=== PATIENT | male | born 1995 | race Caucasian/White ===

== ENCOUNTER 2022-11-21 15:07 | Emergency (ER) | payer MEDICAID, SELFPAY ==
[2022-11-21 15:18] VITALS: BP 118/72; PULSE 82; RESP 16; TEMP 37.3; O2SAT 98; BMI 24.2
--- NOTE | 2022-11-21 15:50 | ED_ITS ---
HPI - General Adult General Date Seen: 11/21/22 Chief complaint: Extremity Pain/Injury, Upper Stated complaint: Tore R bicep Time Seen by Provider: 11/21/22 15:22 Source: patient Mode of arrival: ambulatory Limitations: no limitations History of Present Illness HPI narrative: Patient is a 27-year-old male who is currently staying at [facility]. He says he was doing a lot of raking earlier today and any went to the gym. He was using dumbbells and doing biceps curls when he felt a pop in his right antecubital fossa. Then he has had some aching in his biceps and antecubital fossa since then. He has not developed any bruising or deformity. His strength is not significantly affected. He was concerned about possible tendon rupture. Related Data Allergies Allergy/AdvReac Type Severity Reaction Status Date / Time No Known Drug Allergies Allergy Verified 11/21/22 15:21 Exam Narrative: Exam Narrative: Vital signs reviewed In general, alert, well-appearing male. Extremities: Examination of the right arm shows it to be normal in appearance. Specifically the shoulder, biceps and antecubital fossa as well as forearm are normal without bruising, alteration in muscle bulk or shape. He has full range of motion at the shoulder, elbow, and wrist. He has intact strength of flexion, extension, supination and pronation. He does have a little bit of pain in the antecubital fossa with flexion and supination. He does not have significant tenderness to palpation of the biceps muscle and there is no palpable defect. Skin: Warm dry well perfused. No bruising or erythema. Const: Vital Signs, click to edit/add: Vital Signs - 24 hr 11/21/22 15:18 Temperature 99.1 F Pulse Rate [Right Pulse Oximeter] 82 Respiratory Rate 16 Blood Pressure [Le ft Upper Arm] 118/72 Pulse Oximetry 98 Oxygen Delivery Me thod Room Air Documenting provider has reviewed patient's vital signs: yes Course Course ED Course: Discussed with him that overall his exam is not suggestive of a full tendon rupture. He certainly might have a sprain or strain. I suggest that we put him in a sling, have him use ice and ibuprofen. If symptoms are not improving with conservative measures then he can follow up with Orthopedics, but I think he likely will improve without needing follow-up. For worsening, if he develops significant bruising or swelling, orthopedic referral is recommended. Vital Signs Vital signs: Initial Vital Signs Temperature 99.1 F 11/21/22 15:18 Temperature Source Temporal Artery Scan 11/21/22 15:18 Pulse Rate 82 11/21/22 15:18 Pulse Rhythm Regular 11/21/22 15:18 Pulse Strength 3+ Normal 11/21/22 15:18 Respiratory Rate 16 11/21/22 15:18 Blood Pressure 118/72 11/21/22 15:18 Blood Pressure Mean 87 11/21/22 15:18 Blood Pressure Position Sitting 11/21/22 15:18 Pulse Oximetry 98 11/21/22 15:18 Oxygen Delivery Method Room Air 11/21/22 15:18 Vital Signs Temperature 99.1 F 11/21/22 15:18 Pulse Rate 82 11/21/22 15:18 Respiratory Rate 16 11/21/22 15:18 Blood Pressure 118/72 11/21/22 15:18 Pulse Oximetry 98 11/21/22 15:18 Oxygen Delivery Method Room Air 11/21/22 15:18 Temperature 99.1 F 11/21/22 15:18 Pulse Rate 82 11/21/22 15:18 Respiratory Rate 16 11/21/22 15:18 Blood Pressure 118/72 11/21/22 15:18 Pulse Oximetry 98 11/21/22 15:18 Oxygen Delivery Method Room Air 11/21/22 15:18 Discharge Plan Discharge Clinical Impression: Biceps strain Patient Disposition: Xfer Other Condition: Stable Instructions: Muscle Strain (DC) Additional Instructions: Sling for comfort. Ice, ibuprofen 3 times daily with food for the next few days to week. If not improving with conservative measures, or significant swelling, bruising or other changes, follow-up with orthopedics for recheck at [phone]. Activity Level: No Restrictions Discharge Diet: Regular Stand Alone Forms: MyHealth Info Instructions
== END 2022-11-21 15:49 | disposition other institution (70) ==
LOC: ED 15:41
PROVIDERS: Emergency Provider Emergency Medicine
DX: S46.211A Strain of muscle, fascia and tendon of other parts of biceps, right arm, initial encounter (principal); Y93.B9 Activity, other involving muscle strengthening exercises
CPT/HCPCS: 99283